=== PATIENT | male | born 1990 | race Caucasian/White ===

== ENCOUNTER 2016-08-15 14:14 | Emergency (ER) | payer OTHER ==
[~2016-08-15] VITALS: Ht 172.7 cm; Wt 82.9 kg
[2016-08-15] MEDS ORDERED: ONDANSETRON 2MG/ML, 2ML ONE (15:23)
[2016-08-15] MEDS ORDERED: FENTANYL PF 100 MCG/2ML ONE ×2 (15:27→17:32)
[2016-08-15] MEDS ORDERED: ONDANSETRON 2MG/ML, 2ML IVPush ONE (15:30)
[2016-08-15] MEDS ORDERED: SODIUM CHLORIDE 0.9% 1,000ML IVBOLUS ONE ×2 (15:30→18:00)
[2016-08-15] MEDS ORDERED: SODIUM CHLORIDE FLUSH 10ML SYR IVF ONE (15:30)
[2016-08-15 15:50] LABS: ASPARTATE AMINO TRANSFERASE 58 U/L (15-37); BLOOD UREA NITROGEN 25 mg/dL (7-18)
[2016-08-15] MEDS ORDERED: FENTANYL PF 100 MCG/2ML IV ONE ×2 (16:00→17:30)
[2016-08-15] MEDS ORDERED: OMNIPAQUE 350 MG/ML, 100ML BOTTLE ONE (16:43)
[2016-08-15 17:35] VITALS: BP 119/63
== END 2016-08-15 17:40 | disposition short-term general hospital (02) ==
LOC: ED 17:23
DX: S36.039A Unspecified laceration of spleen, initial encounter (principal); S37.032A Laceration of left kidney, unspecified degree, initial encounter; K85.90 Acute pancreatitis without necrosis or infection, unspecified; V87.8XXA Person injured in other specified noncollision transport accidents involving motor vehicle (traffic), initial encounter; Y93.89 Activity, other specified; Y92.89 Other specified places as the place of occurrence of the external cause; Y99.8 Other external cause status
CPT/HCPCS: 36415; 70450; 71260; 72110; 72125; 72128; 72131; 74177; 80053; 83690; 85025; 96361; 96374; 96375; 96376; 99285; J2405; J3010; J7030; Q9967

== ENCOUNTER 2017-09-24 13:50 | Emergency (ER) | payer OTHER ==
[~2017-09-24] VITALS: Ht 170.2 cm; Wt 85.4 kg
[2017-09-24 14:02] VITALS: BP 126/76
[2017-09-24] MEDS ORDERED: LIDOCAINE-MPF 1%, 5ML INFIL ONE (14:30)
[2017-09-24] MEDS ORDERED: LIDOCAINE-MPF 2% ,5ML ONE ×2 (14:31→14:40)
[2017-09-24] MEDS ORDERED: LIDOCAINE-MPF 1%, 2ML ONE (15:56)
[2017-09-24] MEDS ORDERED: BACITRACIN ZINC OINT 500U/GM, 0.9 GM ONE (16:22)
[2017-09-24] MEDS ORDERED: HYDROcodone/APAP 5/325 TABLET ONE (16:54)
[2017-09-24] MEDS ORDERED: AMPICILLIN/SULBACTAM 3 GM in SODIUM CHLORIDE 0.9% 100 ML IV ONE (17:00)
[2017-09-24] MEDS ORDERED: HYDROcodone/APAP 5/325 TABLET PO ONE (17:30)
== END 2017-09-24 17:58 | disposition home or self-care (01) ==
LOC: ED 14:54
DX: S92.425B Nondisplaced fracture of distal phalanx of left great toe, initial encounter for open fracture (principal); S92.535B Nondisplaced fracture of distal phalanx of left lesser toe(s), initial encounter for open fracture; S92.535A Nondisplaced fracture of distal phalanx of left lesser toe(s), initial encounter for closed fracture; X58.XXXA Exposure to other specified factors, initial encounter; Y93.89 Activity, other specified; Y99.8 Other external cause status; Y92.009 Unspecified place in unspecified non-institutional (private) residence as the place of occurrence of the external cause
CPT/HCPCS: 73660; 96365; 99284; J0295

== ENCOUNTER 2017-10-01 08:40 | Emergency (ER) | payer OTHER ==
[~2017-10-01] VITALS: Ht 170.2 cm; Wt 85.1 kg
[2017-10-01 08:46] VITALS: BP 135/79
[2017-10-01] MEDS ORDERED: L.E.T SOLUTION TP ONE ×2 (10:00→10:21)
[2017-10-01] MEDS ORDERED: LIDOCAINE 2%, 10ML INFIL ONE (11:00)
[2017-10-01] MEDS ORDERED: LIDOCAINE-MPF 1%, 2ML ONE (11:01)
[2017-10-01] MEDS ORDERED: LIDOCAINE-MPF 2% ,5ML ONE (11:01)
[2017-10-01] MEDS ORDERED: BACITRACIN ZINC OINT 500U/GM, 0.9 GM ONE (11:31)
== END 2017-10-01 11:50 | disposition home or self-care (01) ==
LOC: ED 09:24
DX: S91.112D Laceration without foreign body of left great toe without damage to nail, subsequent encounter (principal); S91.115D Laceration without foreign body of left lesser toe(s) without damage to nail, subsequent encounter; W23.0XXD Caught, crushed, jammed, or pinched between moving objects, subsequent encounter
CPT/HCPCS: 11730; 11732; 99283